=== PATIENT | female | born 1985 | race Caucasian/White ===

== ENCOUNTER 2020-06-02 22:26 | Inpatient (IN) ==
--- OUTSIDE RECORDS SUMMARY | 2020-06-02 22:29 | External Medical Summary | Continuity of Care Document ---
:1985 Author Name Moody Saldana Address Unavailable Unavailable , Care Team Providers Name Role Phone Jaskaran Saldana Unavailable [email or web address], [place] PCP, NO Unavailable Unavailable Assessments Assessment Narrative:Multiple rib fractures Left writ fracturesAssessed Problems:Wrist fracture Problems Wrist fracture (814.00) (S62.109A) Allergies and Adverse Reactions Allergy history not documented Medications Medications not documented Procedures History of Section Status: Comp leted History of Tonsillectomy Status: Complet ed Immunizations Immunizations not documented Social History - Smoking Status Smokes tobacco daily Interventions Discussion/SummaryI gave the patient a letter stating 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 The other hand Itold her I could not clear her from an orthopedic standpoint and we have set her up to be seen by georges wilks this afternoon. Patient can be discharged from the office but I be glad to see her back in any time. Plan of Treatment Planned Observations Planned Goals not documented Results No Known Results Results not documented Encounters Appointment; Alli Jessica M.D. 09-Jan-2019 14:00 Encounter Diagnosis: Problem not documented
[2020-06-02] MEDS ORDERED: SODIUM CHLORIDE 0.9% 1000ML 2,000 ML IV ONE (22:52)
[2020-06-02] MEDS ORDERED: fentaNYL citrate 100 MCG/2 ML VIAL IV STA (22:55)
[2020-06-02] MEDS ORDERED: ACETAMINOPHEN 1,000 MG/100 ML VIAL IV STA (22:55)
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
[2020-06-02 23:41] LABS: Basophils # (auto) 0.02 K/uL (0-0.2); Basophils % (auto) 0.1 %; Eosinophils # (auto) 0.04 K/uL (0-0.5); Eosinophils % (auto) 0.2 %; Hemoglobin 10.7 g/dL (12.0-16.0); Immature Granulocytes # (auto) 0.06 K/uL (0.00-0.02); Immature Granulocytes % (auto) 0.3 %; Lymphocytes # (auto) 1.95 K/uL (1.2-3.4); Lymphocytes % (auto) 9.5 %; Mean Corpuscular Hemoglobin 28.8 pg (25-34); Mean Corpuscular Hgb Conc 34.5 g/dL (32-36); Mean Corpuscular Volume 83.3 fL (80-100); Monocytes # (auto) 2.49 K/uL (0.11-0.59); Monocytes % (auto) 12.1 %; Neutrophils # (auto) 16.07 K/uL (1.4-6.5); Neutrophils % (auto) 77.8 %; Platelet Count 394 K/uL (130-400); RDW Coefficient of Variation 13.2 % (11.5-14.5); RDW Standard Deviation 40.4 fL (36.4-46.3); Red Blood Count 3.72 M/uL (4.2-5.4); White Blood Count 20.63 K/uL (4.8-10.8)
[2020-06-02 23:59] LABS: Albumin Level 2.8 gm/dl (3.4-5.0); BUN Creatinine Ratio 10.7 (10-20); Calcium 8.7 mg/dl (8.5-10.1); Creatinine Clr Calc Pharmacy 88.2 ml/min; Est GFR (African American) 95.5; Est GFR (Non-African American) 82.4; Magnesium 1.9 mg/dl (1.8-2.4); Potassium 3.3 mmol/L (3.5-5.1)
[2020-06-03 00:02] LABS: Albumin Globulin Ratio 0.6 (0.9-2); Bilirubin,Total 0.4 mg/dl (0.2-1); Globulin 4.6 gm/dl (2.5-4.0); Total Protein 7.4 gm/dl (6.4-8.2)
[2020-06-03] MEDS ORDERED: cefTRIAXone SODIUM 2,000 MG/70 ML BAG IV STA (00:09)
[2020-06-03] MEDS ORDERED: cefTRIAXone SODIUM 1,000 MG/50 ML BAG IV STA (00:09)
[2020-06-03 00:12] LABS: Appearance Urine Clear (Clear); Bacteria Urine Automated 1+ (Negative); Bilirubin Urine Negative (Negative); Blood Urine Trace (Negative); Cast Urine Automated 0 /lpf (0-5); Color Urine Yellow; Epithelial Cell Urine Auto >30 /lpf (0-5); Glucose Urine UA Negative (Negative); Ketones Urine Negative (Negative); Leukocyte Esterase Urine 1+ (Negative); Nitrite Urine Negative (Negative); Protein Urine 1+ (Negative); Specific Gravity Urine 1.016 (1.000-1.030); Urobilinogen Urine Negative (Negative); pH Urine 6.5 (4.5-7.5)
[2020-06-03] MEDS ORDERED: OPTIRAY 320 125ml IV PRN (00:33)
[2020-06-03] MEDS ORDERED: SODIUM CHLORIDE 0.9% 1000ML 1,000 ML IV ONE (01:42)
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
[2020-06-03] MEDS ORDERED: ACETAMINOPHEN 1,000 MG/100 ML VIAL IV STA (02:14)
[2020-06-03] MEDS ORDERED: ALUMINUM/MAGNESIUM SUSP 30 ML UDC PO PRN (02:36)
[2020-06-03] MEDS ORDERED: POLYETHYLENE (MIRALAX) 17 GM PACK PO PRN (02:36)
[2020-06-03] MEDS ORDERED: MAGNESIUM HYDROXIDE SUSP 30 ML UDC PO PRN (02:36)
[2020-06-03] MEDS ORDERED: ONDANSETRON INJ 2 MG/ML 2 ML VIAL IV PRN (02:36)
[2020-06-03] MEDS ORDERED: POTASSIUM CHLORIDE 20 MEQ TABCR PO STA (02:36)
[2020-06-03] MEDS ORDERED: MoRPHine SULFATE 2 MG/ML CARP IV PRN (02:36)
[2020-06-03] MEDS: OXYCODONE HCL IR 5 MG TAB (IMMEDIATE RELEASE) PO PRN ×4 (02:56→23:38)
[2020-06-03] MEDS: SODIUM CHLORIDE 0.9% 1000ML 1,000 ML IV SCH ×2 (04:49→09:22)
--- NOTE | 2020-06-03 07:00 | CT Scan Report ---
CT OF THE ABDOMEN AND PELVIS WITH CONTRAST CLINICAL HISTORY: right flank pain, sepsis COMPARISON STUDY: None. TECHNIQUE: Following IV administration of 91 mL of Optiray-320, axial images of the abdomen and pelvi s were obtained from the lung bases to the proximal femurs. Images were reviewed in the axial, sagitt al, and coronal planes. IV contrast was administered without complication. Automated exposure contro l was utilized for the study. A dose lowering technique was utilized adhering to the principles of A JACKY. CT DOSE: 400.78 mGy.cm FINDINGS: Lung bases are unremarkable. No pneumatosis, free air or portal venous gas is present. The liver, spleen, adrenal glands, left kidney and pancreas are normal. Enhancement of the right kidney i s heterogeneous with multiple hypoenhancing foci. There is moderate right perinephric and periuretera l infiltration. There is right ureteral urothelial thickening. There is no hydronephrosis. No urinary calculi are identified. There is no renal abscess. Fat-containing umbilical hernia is present. There is no evidence for a bowel obstruction. The appendix is normal. Note is made of a 5.2 cm left adnexa l lesion which measures above water attenuation. There is an adjacent 4.3 cm water attenuation left a dnexal lesion. There is also a 7.4 cm water attenuation lesion posterior to the uterus. No suspicious osseous lesion is noted. IMPRESSION: 1. Heterogeneous enhancement of the right kidney with perinephric infiltration. No hydronephrosis or ureteral calculi. The findings favor pyelonephritis and pyelitis. No renal abscess. 2. 5.2 cm left adnexal lesion which measures above water attenuation with adjacent water attenuation left adnexal lesion. These favor ovarian cysts however a follow-up nonemergent pelvic ultrasound is r ecommended. In addition, 7.4 cm water attenuation focus posterior to the uterus to be assessed on ult rasound. This could reflect an ovarian/paraovarian cyst or loculated pelvic fluid. 3. Fat-containing umbilical hernia. ACT 112: Negative or not required by law. Electronically signed by: Eric Elias M.D. 06/03/2020 6:58 AM
--- NOTE | 2020-06-03 07:20 | XRay Report ---
XR chest 1V portable CLINICAL HISTORY: right flank pain COMPARISON STUDY: Chest CT December 25, 2018. FINDINGS: Lung volumes are normal. Lungs are clear. There is no pneumothorax or pleural effusion. Car diac size is normal. Mediastinal contours are normal. There is no evidence for pulmonary edema. IMPRESSION: No acute cardiopulmonary findings. ACT 112: Negative or not required by law. Electronically signed by: Eric Elias M.D. 06/03/2020 7:19 AM
[2020-06-03] MEDS: ACETAMINOPHEN 500 MG TAB PO PRN ×2 (08:42→22:04)
[2020-06-03] MEDS ORDERED: ALPRAZolam 0.5 MG TABLET PO SCH (09:00)
--- NOTE | 2020-06-03 11:55 | History & Physical Bridge Note ---
Date of Service June 03, 2020 History & Physical Bridge Note Patient seen and examined today. BP rebounded on its own from early AM BP of 80/50. BP was 105/65 on repeat measures. Patient still quite uncomfortable. - Monitor BP closely - Continue IV fluids, abx, pain control. - Low-dose Xanax PRN
--- NOTE | 2020-06-03 15:05 | Electrocardiogram Report ---
Test Reason : Blood Pressure : / mmHG Vent. Rate : 114 BPM Atrial Rate : 114 BPM P-R Int : 126 ms QRS Dur : 080 ms QT Int : 342 ms P-R-T Axes : 056 089 052 degrees QTc Int : 471 ms Sinus tachycardia Low voltage QRS Borderline ECG When compared with ECG of 25-DEC-2018 15:46, No significant change was found Confirmed by Ge Worthington ([id number]) on 06/03/2020 3:05:23 PM Referred By: REFERRED SELF Confirmed By:Ge Worthington
--- NOTE | 2020-06-03 21:24 | Billing Data ---
Date of Service June 03, 2020 Coding Level of Care Code 95189 OBS Care - Level 3
[2020-06-03] MEDS: cefTRIAXone SODIUM 1,000 MG in DEXTROSE 5% 50 ML IV SCH (21:55)
[2020-06-03] MEDS: ALPRAZolam 0.5 MG TABLET PO PRN (22:34)
[2020-06-04] MEDS: ALPRAZolam 0.5 MG TABLET PO PRN (03:05)
[2020-06-04 07:06] LABS: Basophils # (auto) 0.04 K/uL (0-0.2); Basophils % (auto) 0.3 %; Eosinophils # (auto) 0.29 K/uL (0-0.5); Eosinophils % (auto) 2.2 %; Hematocrit (blood only) 29.6 % (37-47); Hemoglobin 9.9 g/dL (12.0-16.0); Immature Granulocytes # (auto) 0.05 K/uL (0.00-0.02); Immature Granulocytes % (auto) 0.4 %; Lymphocytes # (auto) 2.55 K/uL (1.2-3.4); Lymphocytes % (auto) 19.4 %; Mean Corpuscular Hemoglobin 28.7 pg (25-34); Mean Corpuscular Hgb Conc 33.4 g/dL (32-36); Mean Corpuscular Volume 85.8 fL (80-100); Mean Platelet Volume 10.8 fL (7.4-10.4); Monocytes % (auto) 14.5 %; Neutrophils # (auto) 8.29 K/uL (1.4-6.5); Neutrophils % (auto) 63.2 %; Platelet Count 414 K/uL (130-400); RDW Coefficient of Variation 14.1 % (11.5-14.5); RDW Standard Deviation 44.3 fL (36.4-46.3); Red Blood Count 3.45 M/uL (4.2-5.4); White Blood Count 13.12 K/uL (4.8-10.8)
[2020-06-04] MEDS: ACETAMINOPHEN 500 MG TAB PO PRN ×2 (07:08→16:14)
[2020-06-04 07:31] LABS: BUN Creatinine Ratio 9.6 (10-20); Calcium 8.2 mg/dl (8.5-10.1); Creatinine Clr Calc Pharmacy 109.7 ml/min; Est GFR (African American) 124.2; Est GFR (Non-African American) 107.2; Potassium 3.6 mmol/L (3.5-5.1)
[2020-06-04] MEDS: OXYCODONE HCL IR 5 MG TAB (IMMEDIATE RELEASE) PO PRN ×3 (08:37→20:33)
--- NOTE | 2020-06-04 12:37 | Hospitalist Progress Note ---
Date of Service June 04, 2020 Assessment & Plan (1) Pyelonephritis of right kidney: Noted on CT a/p on admission. - Continue ceftriaxone - Follow cultures - D/c IV fluids today (2) Sepsis: On presentation with HR, blood pressure, and leukocytosis. - Resolved today. (3) Anxiety: Reports Xanax use at home, but none on the PDMP. - Low-dose while hospitalized. (4) DVT prophylaxis: SCDs - Low DVT risk per admission calculator Admission and Anticipated Discharge Date Admission Date: June 03, 2020 Subjective Doing much better today. Less pain. More alert and awake. Reports no fevers/chills, chest pain, shortness of breath, nausea, or vomiting. Physical Exam Constitutional: WD/WN, vitals as above Eyes: EOM intact bilaterally; no conjunctival abnormality ENMT: external ear and nose normal, oropharynx normal Neck: trachea midline, no thyromegaly normal visual inspection Respiratory: normal respiratory effort, lungs clear to auscultation no respiratory distress Cardiovascular: RRR, no murmur, no edema Gastrointestinal (Abdomen): Inspection/Auscultation: abdomen normal to inspection; abdomen not distended Musculoskeletal: no cyanosis or clubbing, extremities motor strength 5/5 Skin: no rashes, warm and dry Neurologic: moves all extremities and awake Psychiatric: Orientation: alert, oriented to person and cooperative Results & Data Results & Data ([facility]) Vital Signs (Past 12 Hours) Vital Signs Temp Pulse Pulse Resp BP BP Pulse Ox 06/04/20 11:38 36.7 C 61 18 126/78 94 06/04/20 08:44 37.9 C H 06/04/20 07:19 111 H 06/04/20 07:02 39.5 C H 114 H 16 106/71 100 06/04/20 02:35 36.2 C L 98 H 18 99/61 L 98 PG Care Time/CCT Total # of Minutes Spent Total Time Spent with Patient: Total time spent is greater than 50% in coordination of care (as documented) at patient's floor/unit and/or counseling patient: Coding Level of Care Code 57205 Subseq Hosp Care Lvl 2 Diagnoses Pyelonephritis of right kidney N12 Sepsis A41.9 Sepsis acute organ dysfunction status: without acute organ dysfunction Sepsis type: sepsis due to unspecified organism Anxiety F41.9 DVT prophylaxis Z29.9 (1) Sepsis Sepsis acute organ dysfunction status: without acute organ dysfunction Sepsis type: sepsis due to unspecified organism Qualified Code(s): A41.9 - Sepsis, unspecified organism
[2020-06-04] MEDS: cefTRIAXone SODIUM 1,000 MG in DEXTROSE 5% 50 ML IV SCH (22:14)
[2020-06-05] MEDS: ACETAMINOPHEN 500 MG TAB PO PRN (00:14)
[2020-06-05] MEDS: OXYCODONE HCL IR 5 MG TAB (IMMEDIATE RELEASE) PO PRN (09:15)
[2020-06-05] MEDS ORDERED: cefTRIAXone SODIUM 1,000 MG in DEXTROSE 5% 50 ML IV STA (11:02)
[2020-06-05] MEDS: cefTRIAXone SODIUM 1,000 MG in DEXTROSE 5% 50 ML IV SCH (11:47)
--- NOTE | 2020-06-05 20:34 | Discharge Summary ---
Date of Service June 05, 2020 Admission HPI Per Admitting Provider Holly Mosquera is a 34 y/o female with past medical hx of Anxiety and UTIs. She notes onset about 3 days ago of body aches then developed right axillary and right back pain that worsened. She notes nausea with some mild vomiting. She notes pain has intensified over the 3 and is constant. Her pain is stabbing and radiates across to upper abdomen. She notes subjective fever and chills. She notes her urine has been cloudy and denies dysuria. She notes history of frequent UTIs, treated with abx, but patient notes no etiology for frequent UTIs. She notes she has never needed to have been hospitalized for UTIs. In the ED, she had WBC 20.63, septic with low BPs 90s/50s with lowest of 88/52 and tachycardia 110-120s. She had other labs notable for Sodium 134, K 3.3, CO2 20, UA with trace blood WBC but with >30 epith cells. She had a CXR with NAD. She had a CT Abd/Pelvis of right kidney showing mildly heterogeneous parenchymal enhancement with extensive right perinephric edema. The right renal collecting system is mildly more prominent than the left; however, there is no evidence of ureteral calculus, suspicious for pyelonephritis/UTI. Large cystic structure in left adnexa measuring 4.9x3.6x5.6cm, likely ovarian in nature, consider pelvic US for further evaluation. In the ED, she is receiving 3L NSS Bolus and started on Rocephin IV. She also was given Tylenol 1gm IV. Principal Diagnosis Pyelonephritis Discharge Exam Constitutional WD/WN, vitals as above Eyes EOM intact bilaterally; no conjunctival abnormality ENMT external ear and nose normal, oropharynx normal Neck trachea midline, no thyromegaly normal visual inspection Respiratory normal respiratory effort, lungs clear to auscultation no respiratory distress Cardiovascular RRR, no murmur, no edema Gastrointestinal (Abdomen) Inspection/Auscultation: abdomen normal to inspection; abdomen not distended Musculoskeletal no cyanosis or clubbing, extremities motor strength 5/5 Skin no rashes, warm and dry Neurologic moves all extremities and awake Psychiatric Orientation: alert, oriented to person and cooperative Discharge Data Allergies Allergy/AdvReac Type Severity Reaction Status Date / Time No Known Allergies Allergy Verified 06/03/20 01:03 Consultations 06/03/20 00:57 ED Decision to Admit Stat Ordered Studies 06/02/20 22:52 CT abd pelvis IV con only Urgent Hospital Course (1) Pyelonephritis of right kidney: Noted on CT a/p on admission. - Continue ceftriaxone while inpatient. - Culture showed peters-sensitive E. coli -> Discharged on additional 7 days of ciprofloxacin. (2) Sepsis: On presentation with HR, blood pressure, and leukocytosis. - Resolved prior to discharge. (3) Anxiety: Reports Xanax use at home, but none on the PDMP. - Low-dose while hospitalized. (4) DVT prophylaxis: SCDs - Low DVT risk per admission calculator Total Time Total Time Spent Total Time Spent (In Minutes): 35 Discharge Plan Discharge Items Patient Disposition: Home - Self-Care Reason For Visit: PYELONEPHRITIS, RIGHT BACK PAIN, SEPSIS Discharge Diagnosis: Pyelonephritis Activity: Resume your previous activity Non-emergency contact: Primary Care Provider Call non-emergency contact if: your symptoms worsen, your pain is not controlled, your pain is worsening and your rectal temperature is above 100.4 Follow-up/Referrals: PCP,NO [Primary Care Provider] - Diet: Regular Addtl Attending Provider Instructions: You were admitted for a right kidney infection (called pyelonephritis). This occurs when bacteria get into your bladder and are able to get up to the kidney. Your infection was quite severe and required IV antibiotics for a few days. We are going to send you out on another week's worth of antibiotics to help finish killing off the bacteria. Your first pill should be taken tomorrow morning (). I am also sending you a small amount of pain medication. This medication can be taken 2-3 times per day as needed. You may also take Tylenol (acetaminophen) with it. Please follow up with your PCP by the time you finish the antibiotics to be sure you're doing well. Please call your PCP right away if you have further fevers > 101 degrees, more side/back pain, worsening back pain, changing pain, nausea, vomiting, or other concerns. Pending Studies at Discharge: No Stand-Alone Forms: My [facility], Smoking Cessation Medications and DC Order Prescriptions: New ciprofloxacin HCl 500 mg tablet 500 mg PO BID Qty: 14 RF: 0 tramadol 50 mg tablet 50 mg PO Q8H PRN (Reason: pain) Qty: 10 RF: 0 Discontinued alprazolam 1 mg Tablet 1 mg PO BID RF: 0 Discharge Orders: Discharge Order (Routine); Ordered 06/05/20 Ordered By: Scooby Shay Admission Data Admit Date/Time: 06/03/20 01:44 Attending Provider: Scooby Shay Admit Provider: Osman Montoya Primary Care Provider: PCP,NO Other Providers: Christophe Gunter Other Interventions: Discharge Summary Assessment (RN) Last Done: 06/05/20 12:31 DC Date/Time DO NOT enter until pt leaves facility: 06/05/20 13:00 Coding Level of Care Code D/C Day Management >30 mins Diagnoses Pyelonephritis of right kidney N12 Sepsis A41.9 Sepsis acute organ dysfunction status: without acute organ dysfunction Sepsis type: sepsis due to unspecified organism Anxiety F41.9 DVT prophylaxis Z29.9
== END 2020-06-05 13:00 | disposition home or self-care (01) | DRG 872 ==
LOC: ED 22:26 → SUATTDRO 06-03 01:44 → 2N 06-03 01:44